=== PATIENT | female | born 1970 | race Two or more races ===

== ENCOUNTER 2020-01-23 05:45 | Day surgery (SDC) | payer OTHER | END 2020-01-23 10:22 | disposition home or self-care (01) | LOC: AMB-ENDOS 05:45 | PROVIDERS: ATTEND Surgery | DX: K31.7 Polyp of stomach and duodenum (principal); K29.50 Unspecified chronic gastritis without bleeding; K44.9 Diaphragmatic hernia without obstruction or gangrene; Z20.828 Contact with and (suspected) exposure to other viral communicable diseases ==